=== PATIENT | male | born 1980 | race Caucasian/White ===

== ENCOUNTER → 2020-05-14 | Outpatient (CLI) | payer OTHER | LOC: KOH-I 13:30 | DX: M54.9 Dorsalgia, unspecified (principal); G89.29 Other chronic pain; M47.818 Spondylosis without myelopathy or radiculopathy, sacral and sacrococcygeal region | CPT/HCPCS: 72195 ==

== ENCOUNTER → 2020-11-02 | Outpatient (CLI) | payer OTHER | LOC: KOH-I 08:43 | DX: M47.812 Spondylosis without myelopathy or radiculopathy, cervical region (principal); M50.30 Other cervical disc degeneration, unspecified cervical region | CPT/HCPCS: 72040 ==

== ENCOUNTER → 2021-01-25 | Outpatient (CLI) | payer OTHER | LOC: EMI 08:00 | DX: M47.812 Spondylosis without myelopathy or radiculopathy, cervical region (principal); M50.322 Other cervical disc degeneration at C5-C6 level | CPT/HCPCS: 72141 ==

== ENCOUNTER 2021-07-05 08:12 | Observation (INO) | payer OTHER ==
[~2021-07-05] VITALS: Ht 175.3 cm; Wt 88.5 kg
[2021-07-05 08:51] LABS: RED BLOOD COUNT 5.13 M/UL (4.20-5.50); WHITE BLOOD COUNT 3.9 K/UL (4.5-11.0)
[2021-07-05 09:16] LABS: BUN/CREATININE RATIO 20 (0-10)
[2021-07-05] MEDS ORDERED: COLESTIPOL HCL1 GM PO (14:34)
[2021-07-05] MEDS ORDERED: PROTONIX40 MG PO (14:35)
[2021-07-05] MEDS ORDERED: IBU800 MG PO (14:35)
[2021-07-05] MEDS ORDERED: NITROSTAT0.4 MG SL (14:42)
[2021-07-05] MEDS ORDERED: ASPIRIN CHEWABL81 MG PO (14:42)
== END 2021-07-05 14:48 | disposition left against medical advice (07) ==
LOC: ER1 08:12 → CDU 11:56
PROVIDERS: Emergency Medicine; ADMIT Internal Medicine Infectious Disease
DX: R07.89 Other chest pain (principal); I10 Essential (primary) hypertension; K21.9 Gastro-esophageal reflux disease without esophagitis; G89.29 Other chronic pain; M54.9 Dorsalgia, unspecified; Z20.822 Contact with and (suspected) exposure to COVID-19
CPT/HCPCS: 71045; 80053; 82550; 82553; 84484; 85025; 93005; 99285; G0378; U0002

== ENCOUNTER → 2021-08-16 | Outpatient (CLI) | payer OTHER ==
[~2021-08-16] MED LIST: ASPIRIN CHEWABL81 MG PO; COLESTIPOL HCL1 GM PO; IBU800 MG PO; NITROSTAT0.4 MG SL; PROTONIX40 MG PO
== END ==
LOC: HEART CORB 06-14 11:00
DX: R07.2 Precordial pain (principal); R06.02 Shortness of breath